=== PATIENT | female | born 1995 | race Caucasian/White ===

== ENCOUNTER → 2021-09-22 | Outpatient (CLI) | payer BC ==
[2021-09-22 09:52] VITALS: BP 128/82; PULSE 74; RESP 17; TEMP 98.3
--- NOTE | 2021-09-22 12:32 | P.HPOB ---
History of Present Illness H&P Date: 09/22/21 Chief Complaint: The patient is here for her routine gynecologic exam. This is a 25-year-old with an LMP of 09/21/2021. She is here to establish with this office. Her last pelvic exam was in 2019. She is status post section in 2019. After her section, she had a Nexplanon implant placed for control. She states it caused moodiness and it was removed in January 2020. With the Nexplanon implant, her menstrual periods were about every 2 months and were light and brownish. After it was removed, the menstrual periods became regular every month, but remained light and brownish for 1 year. Her menstrual periods were more normal and more red starting in February 2021. She is currently without gynecologic complaints. She has been abstaining from sexual activity recently, but may want to attempt again in the next couple of years. She is declining any form of control at this time. She is currently using abstinence for control. Review of Systems The patient's weight has been stable over the last year. She had gained approximately 95 pounds with her . She has lost about 30 pounds after the . She denies respiratory, cardiac, or G.I. problems. 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 PAST MACHINE CLEANER HISTORY: She has no history of STDs. History of Any Multi-Drug Resistant Organisms: None Reported Past Surgical History: Section Additional Past Surgical History / Comment(s): SECTION 2019. Surgery for pyloric stenosis as an . Past Anesthesia/Blood Transfusion Reactions: No Reported Reaction Past Psychological History: No Psychological Hx Reported (She denies any current depression symptoms.) Smoking Status: Former smoker Past Alcohol Use History: Rare (3 per year) Additional Past Alcohol Use History / Comment(s): Quit smoking during her first and again quit in August 2021. Past Drug Use History: None Reported Additional History: She has been since 2018. She is currently not working outside of the home. - Past Family History Mother Family Medical History: Cancer Additional Family Medical History / Comment(s): Cystic fibrosis. She had some type of cancer but is uncertain of the type. Daughter(s) Additional Family Medical History / Comment(s): Cystic fibrosis carrier. Medications and Allergies Home Medications Medication Instructions Recorded Confirmed Type No Known Home Medications 09/22/21 09/22/21 History Allergies Allergy/AdvReac Type Severity Reaction Status Date / Time No Known Allergies Allergy Unverified 09/22/21 09:44 Exam Vital Signs Temp Pulse Resp BP Pulse Ox 09/22/21 09:47 98.3 F 74 17 128/82 100 Intake and Output 09/21/21 09/22/21 09/22/21 22:59 06:59 14:59 Other: Weight 108.409 kg Height 5 feet 2 inches, weight 239 pounds, BMI 43.7. This is a well-developed well-nourished heavyset white female who is alert and oriented times 3 in no acute distress. HEENT: Within normal limits. NECK: Supple without mass or thyromegaly. CHEST AND LUNGS: Clear to auscultation. HEART: Regular rate and rhythm. BREASTS: Are without mass or discharge. AXILLARY EXAM: Negative for adenopathy. BACK: Negative for CVA tenderness. ABDOMEN: Soft, nontender, without palpable masses. PELVIC EXAM: Normal external genitalia. Cervix and vagina appear normal. There is a small amount of menstrual type blood in the vagina. There is no unusual discharge. There is no evidence of prolapse. The uterus is midposition, nongravid size and nontender. There are no palpable adnexal masses or tenderness. RECTAL EXAM: Deferred. EXTREMITIES: Nontender. IMPRESSION: 1. 25-year-old female with normal gynecologic exam. 2. Contemplating attempting in the near future. She is declining any form of control at this time. 3. History of gestational diabetes. PLAN: 1. Pap smear was performed. This will be cytology only. 2. Self breast awareness was discussed with the patient. We have also discussed symptoms associated with inflammatory breast cancer. 3. GC and chlamydia screening was obtained from the cervix. 4. Because of her history of gestational diabetes, I have recommended screening for type 2 diabetes with a fasting serum glucose test. This will be done today since she is in the fasting state. The order slip was given to the patient for this. 5. Weight control was discussed with the patient. I have stressed the importance of good nutrition, regular exercise, regular meals and adequate fiber. 6. Preconception planning was discussed. She will keep a menstrual calendar. She will also start taking a daily multivitamin with folic acid. 7. She was advised to return in one year for her annual well woman exam. She will also call if problems or if . She understands that I am no longer doing obstetrics. She states she plans on moving to [place] in the near future.
--- NOTE | 2021-09-23 11:49 | P.PN ---
Progress Note - Text Progress Note Date: 09/23/21 OUTPATIENT FOLLOW-UP NOTE TEST(S)/RESULTS: Fasting glucose done on 09/22/2021 was 86. METHOD OF NOTIFICATION: The normal result was left on the patient's voicemail. PATIENT COMMENTS: DIAGNOSIS: Normal fasting blood glucose. DISCUSSION: I have stressed the importance of good nutrition and regular exercise. This will be considered a screen for type 2 diabetes and this was normal. PLAN: As above.
== END ==
LOC: WWCWWP 08:43
PROVIDERS: ATTEND Obstetrics & Gynecology
DX: Z11.3 Encounter for screening for infections with a predominantly sexual mode of transmission (principal); Z01.419 Encounter for gynecological examination (general) (routine) without abnormal findings; Z87.891 Personal history of nicotine dependence
CPT/HCPCS: 82947; 87491; 87591